=== PATIENT | male | born 1955 | race Caucasian/White ===

== ENCOUNTER → 2016-05-24 | Outpatient (CLI) | payer OTHER ==
[~2016-05-24] MED LIST: ROSU10 PO; SYNT25TA
[2016-05-25 05:21] LABS: FREE PSA/PSA RATIO 0.14 ratio (())
== END ==
LOC: OLAB 08:57
PROVIDERS: ATTEND Urology
DX: R97.20 Elevated prostate specific antigen [PSA] (principal)
CPT/HCPCS: 84153; 84154